=== PATIENT | male | born 1950 | race Caucasian/White ===

== ENCOUNTER 2022-02-19 05:54 | Day surgery (SDC) | payer BC ==
[2022-02-18 09:08] VITALS: BMI 30.1
[2022-02-19] MEDS ORDERED: EPINEPHrine 1 MG/ML AMP ONE (06:13)
[2022-02-19] MEDS ORDERED: Bupivacaine PF 0.5% 30 ML VIAL ONE (06:14)
[2022-02-19] MEDS ORDERED: PROPOFOL 40 ML ONE (06:39)
[2022-02-19] MEDS ORDERED: Lidocaine 1% PF 5 ML VIAL ONE (06:40)
[2022-02-19] MEDS ORDERED: Clindamycin/D5W 600 mg/50 ml Premix Bag ONE (06:41)
[2022-02-19] MEDS ORDERED: Dexamethasone 4 mg/ml Vial ONE (07:08)
[2022-02-19] MEDS ORDERED: Ondansetron PF 4 MG/2 ML Vial ONE (07:08)
[2022-02-19] MEDS ORDERED: Acetaminophen 325 MG TAB PO PRN (07:50)
[2022-02-19] MEDS ORDERED: HYDROcodone/Acetaminophen 5/325 mg Tablet PO PRN (07:50)
== END 2022-02-19 08:35 | disposition home or self-care (01) ==
LOC: CSHSDC 05:54
PROVIDERS: ATTEND Surgery
PROC: 0JH60WZ Insertion of Totally Implantable Vascular Access Device into Chest Subcutaneous Tissue and Fascia, Open Approach (ICD-10-PCS; principal; 2022-02-19)
DX: C34.81 Malignant neoplasm of overlapping sites of right bronchus and lung (principal); I10 Essential (primary) hypertension; J44.9 Chronic obstructive pulmonary disease, unspecified; E78.5 Hyperlipidemia, unspecified; F17.210 Nicotine dependence, cigarettes, uncomplicated; Z79.899 Other long term (current) drug therapy; Z91.040 Latex allergy status; Z88.0 Allergy status to penicillin
CPT/HCPCS: 71045; 94799; C1788; J0171; J1100; J1642; J2405; J2704; J3490; S0020

== ENCOUNTER 2022-03-28 12:04 | Outpatient (CLI) | payer BC | END 2022-03-28 12:05 | disposition home or self-care (01) | LOC: CSHCT 12:04 | PROVIDERS: ATTEND Internal Medicine | DX: C34.90 Malignant neoplasm of unspecified part of unspecified bronchus or lung (principal); C34.11 Malignant neoplasm of upper lobe, right bronchus or lung; C79.31 Secondary malignant neoplasm of brain | CPT/HCPCS: 70553; 71260; 74177; 82565 ==

== ENCOUNTER 2022-06-04 10:12 | Outpatient (CLI) | payer BC ==
[~2022-06-04 10:12] MED LIST: Iopamidol 300 61% 100 ML VIAL FS ONE
== END 2022-06-04 10:13 | disposition home or self-care (01) ==
LOC: CSHCT 10:12
PROVIDERS: ATTEND Internal Medicine
DX: C34.90 Malignant neoplasm of unspecified part of unspecified bronchus or lung (principal); G93.9 Disorder of brain, unspecified; R91.8 Other nonspecific abnormal finding of lung field
CPT/HCPCS: 70553; 71260; 74177; 82565